=== PATIENT | female | born 1995 | race Caucasian/White ===

== ENCOUNTER 2016-12-20 15:02 | Emergency (ER) | payer OTHER ==
[2016-12-20 15:10] VITALS: BP 140/96
[2016-12-20] MEDS ORDERED: Ibuprofen TAB* 600 MG PO ONE (15:12)
--- NOTE | 2016-12-20 15:53 | UC ---
Respiratory Complaint HPI - HPI Summary HPI Summary: 1.5 WEEKS OF NASAL CONGESTION, COUGH, ST AND LEFT EAR PAIN. NO FEVER. SUDAFED NOT HELPING ANYMORE. - History of Current Complaint Chief Complaint: UCRespiratory Stated Complaint: COLD,COUGH Time Seen by Provider: 12/20/16 15:13 Hx Obtained From: Patient Hx Last Menstrual Period: 12/13/16 Onset/Duration: Gradual Onset, Lasting Days, Still Present Timing: Constant Severity Initially: Moderate Severity Currently: Moderate Pain Intensity: 7 Pain Scale Used: 0-10 Numeric Character: Cough: Nonproductive Aggravating Factors: Nothing Alleviating Factors: Nothing Associated Signs And Symptoms: Positive: URI, Nasal Congestion, Hoarseness. Negative: Dyspnea, Fever, Wheezing - Allergies/Home Medications Allergies/Adverse Reactions: Allergies Allergy/AdvReac Type Severity Reaction Status Date / Time No Known Allergies Allergy Verified 09/15/14 08:47 Home Medications: Home Medications Norgestimate-Eth Estradiol(NF) [Ortho Tri-Cyclen (NF)] 1 tab PO DAILY 12/20/16 [ History Confirmed 12/20/16] PMH/Surg Hx/FS Hx/Imm Hx Previously Healthy: Yes - Surgical History Surgical History: None - Family History Known Family History: Positive: Hypertension - Social History Alcohol Use: Weekly Substance Use Type: Marijuana Substance Use Comment - Amount & Last Used: once a month Smoking Status (MU): Never Smoked Tobacco Review of Systems Constitutional: Negative ENT: Sore Throat, Ear Ache, Nasal Discharge Respiratory: Cough Cardiovascular: Negative Gastrointestinal: Negative All Other Systems Reviewed And Are Negative: Yes Physical Exam Triage Information Reviewed: Yes Appearance: Well-Appearing, No Pain Distress, Well-Nourished Vital Signs: Initial Vital Signs Temp 98.6 F 12/20/16 15:06 Pulse 85 12/20/16 15:06 Resp 18 12/20/16 15:06 BP 140/96 12/20/16 15:06 Pulse Ox 100 12/20/16 15:06 Vital Signs Reviewed: Yes Eyes: Positive: Conjunctiva Clear ENT: Positive: Hearing grossly normal, Pharynx normal, TMs normal Neck: Positive: Supple, Nontender, No Lymphadenopathy Respiratory Exam: Normal Cardiovascular Exam: Normal Abdomen Description: Positive: Soft Musculoskeletal: Positive: No Edema Neurological: Positive: Alert Psychological: Positive: Age Appropriate Behavior Skin: Negative: rashes UC Diagnostic Evaluation - Laboratory O2 Sat by Pulse Oximetry: 100 Respiratory Course/Dx - Differential Dx/Diagnosis Provider Diagnoses: ACUTE BRONCHITIS Discharge - Discharge Plan Condition: Stable Disposition: HOME Prescriptions: Azithromycin [Azithromycin 500 MG TAB] 500 mg PO DAILY #5 tab Fluconazole [Diflucan] 1 tab PO ONCE #2 tab Patient Education Materials: Acute Bronchitis (ED) Referrals: No Primary Care Phys,NOPCP [Primary Care Provider] - Additional Instructions: YOUR SYMPTOMS MAY BE VIRAL IN ETIOLOGY BUT GIVEN THE LENGTH OF TIME YOU HAVE BEEN SICK WE WILL COVER WITH ANTIBIOTICS. ALSO RECOMMEND YOU TAKE AN OTC ANTIHISTAMINE IN CASE THERE IS AN ALLERGIC COMPONENT TO YOUR SYMPTOMS. FOLLOW-UP HERE OR WITH YOUR DOC BACK HOME IF NEEDED.
== END 2016-12-20 15:45 | disposition home or self-care (01) ==
LOC: UCEAST 15:02
DX: J20.9 Acute bronchitis, unspecified (principal)
CPT/HCPCS: 99212; A9270-GY; G0463